=== PATIENT | male | born 1950 | race Two or more races ===

== ENCOUNTER 2024-07-12 13:13 | Inpatient (IN) | payer MEDICARE, OTHER ==
[~2024-07-12] VITALS: Ht 162.6 cm; Wt 53.5 kg
[2024-07-12] MEDS ORDERED: HALOPERIDOL LACTATE 5 MG/1 ML VIAL ONE (13:40)
[2024-07-12] MEDS ORDERED: diphenhydrAMINE 50 MG/1 ML VIAL ONE (13:40)
[2024-07-12] MEDS ORDERED: LORAZEPAM 2 MG/1 ML VIAL ONE (13:41)
[2024-07-12 13:46] LABS: *BILIRUBIN,URIN NEGATIVE (NEGATIVE); *BLOOD, URINE NEGATIVE (NEGATIVE); *CLARITY,URINE CLEAR (CLEAR); *COLOR,URINE YELLOW (YELLOW); *KETONES,URINE NEGATIVE (NEGATIVE); *PROTEIN,URINE NEGATIVE (NEGATIVE); *UROBILINOGEN,URINE 0.2 E.U./dl (NORMAL); LEUKOCYTE ESTERASE ,URINE NEGATIVE (NEGATIVE); NITRITE, URINE NEGATIVE (NEGATIVE); PH,URINE 5.5 (5.0-8.0); UGLUCOSE NEGATIVE (NEGATIVE)
[2024-07-12] MEDS: HALOPERIDOL LACTATE 5 MG/1 ML VIAL IM ONE (13:46)
[2024-07-12] MEDS: LORAZEPAM 2 MG/1 ML VIAL IV ONE (13:46)
[2024-07-12] MEDS: diphenhydrAMINE 50 MG/1 ML VIAL IM ONE (13:46)
[2024-07-12 13:54] LABS: BASOPHILS # (AUTO) 0.1 K/UL (0.0-0.2); BASOPHILS % (AUTO) 1.1 % (0.0-2.0); EOSINOPHILS # (AUTO) 0.2 K/uL (0.0-0.7); EOSINOPHILS % (AUTO) 2.7 % (0.0-7.0); HEMATOCRIT 42.4 % (36.7-47.1); HEMOGLOBIN 14.4 g/dL (12.5-16.3); LYMPHOCYTES # (AUTO) 1.9 K/uL (0.8-4.8); LYMPHOCYTES % (AUTO) 32.1 % (20.5-51.5); MEAN CORPUSCULAR HEMOGLOBIN 31.6 uug (23.8-33.4); MEAN CORPUSCULAR HGB CONC 34 g/dL (32.5-36.3); MEAN CORPUSCULAR VOLUME 93.3 fL (73.0-96.2); MONOCYTES # (AUTO) 0.6 K/uL (0.1-1.30); NEUTROPHILS # (AUTO) 3.1 K/uL (1.8-8.9); NEUTROPHILS % (AUTO) 54.1 % (38.5-71.5); PLATELET COUNT (AUTO) 179 K/uL (152-348); RED BLOOD CELL COUNT(AUTO) 4.55 MIL/uL (4.06-5.63); RED CELL DISTRIBUTION WIDTH 14.5 % (12.1-16.2); WHITE BLOOD COUNT (AUTO) 5.8 K/uL (3.6-10.2)
[2024-07-12 14:06] LABS: ALANINE AMINOTRANSFERASE 37 U/L (16-63); ALBUMIN 3.4 g/dL (3.4-5.0); ALKALINE PHOSPHATASE 104 U/L (50-136); ASPARTATE AMINOTRANSFERASE 31 U/L (15-37); BILIRUBIN,DIRECT 0.2 mg/dL (0.0-0.2); BILIRUBIN,TOTAL 0.9 mg/dL (0.2-1.0); CALCIUM 9.3 mg/dL (8.5-10.1); CARBON DIOXIDE 31 mmol/L (21-32); CHLORIDE 104 mmol/L (98-107); CREATININE 1.1 mg/dL (0.6-1.3); GLUCOSE 94 mg/dL (74-106); POTASSIUM 4.7 mmol/L (3.5-5.1); SODIUM SERUM 141 mmol/L (136-145); TOTAL PROTEIN, SERUM 7.5 g/dL (6.4-8.2); UREA NITROGEN, BLOOD 18 mg/dL (7-18)
[2024-07-12 14:11] LABS: AMMONIA < 10 umol/L (11-32); DIFFERENTIAL COMMENT 1; ETHANOL < 3 MG/DL (0-10)
[2024-07-12 14:28] LABS: THYROID STIMULATING HORMONE 1.275 mIU/mL (0.358-3.740)
[2024-07-12 14:29] LABS: ACETAMINOPHEN < 10.0 ug/mL (10-30)
[2024-07-12 14:52] LABS: *AMPHETAMINE, URINE POSITIVE (NEGATIVE); *BARBITURATE, URINE NEGATIVE (NEGATIVE); *BENZODIAZEPINE, URINE NEGATIVE (NEGATIVE); *CANNABINOID, URINE NEGATIVE (NEGATIVE); *COCCAINE, URINE NEGATIVE (NEGATIVE); *OPIATE, URINE NEGATIVE (NEGATIVE); *PHENCYCLIDINE SCREEN,URINE NEGATIVE (NEGATIVE); FENTANYL, URINE NEGATIVE (NEGATIVE)
[2024-07-12] MEDS ORDERED: QUET200T PO (14:57)
[2024-07-12] MEDS ORDERED: ASPI81TA31 PO (14:57)
[2024-07-12] MEDS ORDERED: TAMS-3 PO (14:57)
[2024-07-12] MEDS ORDERED: FOLI1TAB94 PO (14:57)
[2024-07-12] MEDS ORDERED: LISI20TA30 PO (14:57)
[2024-07-12] MEDS ORDERED: FLUO10CA26 PO (14:57)
[2024-07-12] MEDS ORDERED: ARIP10TA9 PO (14:57)
[2024-07-12] MEDS ORDERED: DIVA500T2 PO (14:57)
[2024-07-12] MEDS ORDERED: AMLO-212 PO (14:57)
[2024-07-12] MEDS ORDERED: CLON-418 PO (14:57)
[2024-07-12] MEDS: IV NORMAL SALINE 1000 ML BAG IV ONE (15:44)
[2024-07-12] MEDS ORDERED: LORAZEPAM 1 MG TABLET PO PRN (18:15)
[2024-07-12] MEDS ORDERED: MAGNESIUM HYDROXIDE 30 ML LIQUID UDC PO PRN (18:15)
[2024-07-12] MEDS ORDERED: ZOLPIDEM 5 MG TABLET PO PRN (18:15)
[2024-07-12 18:39] LABS: THYROID STIMULATING HORMONE 1.304 mIU/mL (0.358-3.740)
[2024-07-12] MEDS: BLOOD SUGAR DIAGNOSTIC 1 EACH STRIP VI ONE (18:50)
[2024-07-12 18:52] VITALS: BP 131/68; TEMP 97.8; O2SAT 99
[2024-07-12 20:00] VITALS: BP 75/52; TEMP 97.6; O2SAT 97
[2024-07-13 09:22] VITALS: BP 137/63; TEMP 98; O2SAT 98
[2024-07-13] MEDS: LISINOPRIL 20 MG TABLET PO SCH (10:16)
[2024-07-13] MEDS: ASPIRIN 81 MG TAB.CHEW PO SCH (10:16)
[2024-07-13] MEDS: AMLODIPINE 5 MG TABLET PO SCH (10:17)
[2024-07-13] MEDS ORDERED: DUTA0.5C37 PO (10:49)
[2024-07-13] MEDS ORDERED: CLON0.1T PO (10:53)
[2024-07-13] MEDS: LORAZEPAM 1 MG TABLET PO PRN (12:04)
[2024-07-13] MEDS: DIVALPROEX 250 MG TABLET.DR PO SCH (12:04)
[2024-07-13 15:03] VITALS: BP 102/59; TEMP 98; O2SAT 98
[2024-07-13] MEDS: risperiDONE 1 MG TABLET PO SCH (17:35)
[2024-07-13] MEDS: TAMSULOSIN HCL 0.4 MG CAP.SR.24H PO SCH (21:13)
[2024-07-14 07:53] VITALS: BP 143/73; TEMP 97.4; O2SAT 98
[2024-07-14] MEDS: FOLIC ACID 1 MG TABLET PO SCH (09:05)
[2024-07-14] MEDS: DUTASTERIDE 0.5 MG CAPSULE PO SCH (09:11)
[2024-07-14] MEDS: ENSURE ENLIVE (VAN) 240 ML LIQUID PO SCH (09:38)
[2024-07-14] MEDS: diphenhydrAMINE 50 MG/1 ML VIAL IM ONE (13:11)
[2024-07-14] MEDS: HALOPERIDOL LACTATE 5 MG/1 ML VIAL IM ONE (13:11)
[2024-07-14 16:08] VITALS: BP 131/67; TEMP 97.4; O2SAT 98
[2024-07-14 20:00] VITALS: BP 135/70; TEMP 97.5; O2SAT 98
[2024-07-15 07:40] VITALS: BP 127/76; TEMP 98; O2SAT 98
[2024-07-15] MEDS: ACETAMINOPHEN 325 MG TABLET PO PRN (09:36)
[2024-07-15] MEDS: MAG HYDROX/AL HYDROX/SIMETH 30 ML LIQUID UDC PO PRN (11:23)
[2024-07-15 15:43] VITALS: BP 100/66; TEMP 98; O2SAT 99
[2024-07-15] MEDS ORDERED: LORAZEPAM 2 MG/1 ML VIAL IV ONE (18:45)
[2024-07-15] MEDS: LORAZEPAM 2 MG/1 ML VIAL IM ONE (18:53)
[2024-07-15 20:00] VITALS: BP 111/52; TEMP 97.6; O2SAT 100
[2024-07-16 08:22] VITALS: BP 123/73; TEMP 98.1; O2SAT 98
[2024-07-16] MEDS: DIVALPROEX 500 MG TABLET.DR PO SCH (16:06)
[2024-07-16 17:43] VITALS: BP 125/71; TEMP 97.7; O2SAT 98
[2024-07-17 00:21] VITALS: BP 108/64; O2SAT 96
[2024-07-17] MEDS: ZOLPIDEM 5 MG TABLET PO PRN (00:59)
[2024-07-17] MEDS ORDERED: risperiDONE 1 MG TABLET PO SCH (09:00)
[2024-07-17] MEDS: risperiDONE 2 MG TABLET PO SCH (09:03)
[2024-07-17 17:07] VITALS: BP 107/64; TEMP 97.9; O2SAT 97
[2024-07-18 01:08] VITALS: BP 117/53; TEMP 97.6; O2SAT 99
[2024-07-18 08:22] VITALS: BP 118/49; TEMP 97.9; O2SAT 100
[2024-07-18 16:52] VITALS: BP 115/68; TEMP 97.6; O2SAT 99
[2024-07-18 22:15] VITALS: BP 95/54; TEMP 97.9; O2SAT 99
[2024-07-19 07:30] VITALS: BP 109/56; TEMP 97.7; O2SAT 98
[2024-07-19 16:30] VITALS: BP 99/54; TEMP 98.2; O2SAT 99
[2024-07-19 20:13] VITALS: BP 111/56; TEMP 98; O2SAT 98
[2024-07-20 07:53] VITALS: BP 98/48; TEMP 98; O2SAT 96
[2024-07-20 15:21] VITALS: BP 118/61; TEMP 98; O2SAT 99
[2024-07-20 20:00] VITALS: BP 122/71; TEMP 97.6; O2SAT 100
[2024-07-21 08:00] VITALS: BP 133/74; TEMP 98; O2SAT 98
[2024-07-21 15:31] VITALS: BP 123/72; TEMP 98; O2SAT 98
[2024-07-21 20:00] VITALS: BP 134/68; TEMP 98.4; O2SAT 99
[2024-07-22 08:16] VITALS: BP 117/64; TEMP 98.2; O2SAT 98
[2024-07-22 15:31] VITALS: BP 99/51; TEMP 98; O2SAT 98
[2024-07-22 20:08] VITALS: BP 116/66; TEMP 97.9; O2SAT 98
[2024-07-23] MEDS: CLONIDINE HCL 0.1 MG TABLET PO PRN (08:20)
[2024-07-23 17:06] VITALS: BP 106/49; TEMP 98.3; O2SAT 97
[2024-07-23 20:00] VITALS: BP 118/72; TEMP 98.2; O2SAT 93
[2024-07-24 08:28] VITALS: BP 136/62; TEMP 98.1; O2SAT 97
== END 2024-07-24 14:30 | DRG 885 ==
LOC: ER 13:13 → GPS 16:33
PROVIDERS: ADMIT Psychiatry & Neurology Psychiatry
DX: F29 Unspecified psychosis not due to a substance or known physiological condition (principal); F25.0 Schizoaffective disorder, bipolar type; K74.60 Unspecified cirrhosis of liver; Z78.1 Physical restraint status; Z79.82 Long term (current) use of aspirin; Z79.899 Other long term (current) drug therapy; N40.0 Benign prostatic hyperplasia without lower urinary tract symptoms; I10 Essential (primary) hypertension
CPT/HCPCS: 36415; 70450; 71045; 80164; 84443; 84484; 85025; 85730; 86592; 93005; A4606; A4663; G0480; J1200; J1630; J2060; J3490; J7040